=== PATIENT | female | born 1990 | race Caucasian/White ===

== ENCOUNTER 2022-02-16 06:11 | Day surgery (SDC) | payer MEDICAID ==
[2022-02-09 15:07] LABS: BASOPHILS % (AUTO) 0.5 % (0-1); EOSINOPHILS # (AUTO) 0.1 X10'3 (0-0.9); EOSINOPHILS % (AUTO) 2.9 % (0-6); LYMPHOCYTES # (AUTO) 1.8 X10'3 (1.1-4.8); LYMPHOCYTES % (AUTO) 39.7 % (21-51); MEAN CORPUSCULAR HEMOGLOBIN 28.4 PG (27.0-31.0); MEAN CORPUSCULAR VOLUME 83.6 FL (78-98); MEAN PLATELET VOLUME 8.5 FL (7.4-10.4); MONOCYTES # (AUTO) 0.3 X10'3 (0-0.9); MONOCYTES % (AUTO) 7.4 % (2-12); NEUTROPHILS # (AUTO) 2.3 X10'3 (1.8-7.7); NEUTROPHILS % (AUTO) 49.5 % (42-75); PRE OP HEMATOCRIT 36.9 % (35.0-45.0); PRE OP HEMOGLOBIN 12.5 g/dL (12.0-16.0); PRE OP PLATELET COUNT 221 X10'3 (140-440); RED BLOOD COUNT 4.41 X10'6 (4.20-5.60); RED CELL DISTRIBUTION WIDTH 13.1 % (11.5-14.5)
[2022-02-09 15:21] LABS: ALBUMIN 3.9 G/DL (3.4-5.0); ALBUMIN/GLOBULIN RATIO 1.2 (1.1-1.5); ALKALINE PHOSPHATASE 80 IU/L (46-116); BLOOD UREA NITROGEN 16 MG/DL (7-18); BUN/CREATININE RATIO 25.4 (6.6-38.0); CALCIUM 8.8 MG/DL (8.5-10.1); CHLORIDE 105 MMOL/L (99-107); CREATININE 0.63 MG/DL (0.40-0.90); PRE OP ALT 26 U/L (30-65); PRE OP ANION GAP 6 (8-16); PRE OP AST 16 U/L (10-37); PRE OP BILIRUB, TOTAL 0.4 MG/DL (0.0-1.0); PRE OP GLUCOSE 94 MG/DL (70-104); PRE OP POTASSIUM 3.9 MMOL/L (3.4-5.1); PRE OP SODIUM 140 MMOL/L (135-145); TOTAL CARBON DIOXIDE 28.9 MMOL/L (24-32); TOTAL PROTEIN 7.1 G/DL (6.4-8.2); eGFR > 90 ML/MIN
[2022-02-09 15:25] LABS: HCG SERUM QL NEGATIVE
[~2022-02-16] VITALS: Ht 170.2 cm; Wt 72.2 kg
[2022-02-16] VITALS (11 sets, daily range): BP systolic 103–141; BP diastolic 60–86
[~2022-02-16 06:11] MED LIST: LEVE500T PO; ceFAZolin inj. 2,000 MG in dextrose 5%-water 100 ML IV ONE; famotidine 20mg tablet PO ONE; ringers solution, lacted 1,000 ML IV SCH
[2022-02-16] MEDS ORDERED: BUPIVAcaine/PF 2.5mg/ml (0.25%) 10ml vial ONE (06:39)
[2022-02-16] MEDS ORDERED: BUPIVACAINE liposomal/PF 13.3 MG/ML vial IM ONE (06:39)
[2022-02-16] MEDS ORDERED: LIDOcaine 1% 30ml preserv. free vial ONE (07:04)
[2022-02-16] MEDS ORDERED: midazolam 1 mg/ML 2ml injection ONE (08:06)
[2022-02-16] MEDS ORDERED: fentaNYL/PF 50MCG/1 ML 2ML syringe ONE (08:06)
[2022-02-16] MEDS ORDERED: propofol inj 20 ML IV ONE (08:07)
[2022-02-16] MEDS ORDERED: rocuronium 10mg/ml inj IV ONE (08:07)
[2022-02-16] MEDS ORDERED: ringers solution, lacted 1,000 ML IV SCH (08:10)
[2022-02-16] MEDS ORDERED: morphine 2 MG/ML inj. syringe IV PRN (08:10)
[2022-02-16] MEDS ORDERED: ondansetron/PF 4mg/2ml inj IV PRN (08:10)
[2022-02-16] MEDS ORDERED: morphine 4 MG/ML inj SYRINge IV PRN (08:10)
[2022-02-16] MEDS ORDERED: HYDROmorphone/PF 0.2 MG/ML SYRINGE IV PRN ×2 (08:10)
[2022-02-16] MEDS ORDERED: meperidine/PF 25mg/ml syringe IV PRN (08:10)
[2022-02-16] MEDS ORDERED: sevoflurane 250ml liquid IH ONE (08:14)
[2022-02-16] MEDS ORDERED: dexamethasone sod phosphate 4mg/ml inj. ONE (08:28)
[2022-02-16] MEDS ORDERED: ondansetron/PF 4mg/2ml inj ONE (09:46)
[2022-02-16] MEDS ORDERED: neostigmine methylsulfate 1 MG/ML 10ml vial ONE (09:48)
[2022-02-16] MEDS ORDERED: glycopyrrolate 0.2mg/ml inj ONE (09:48)
--- NOTE | 2022-02-16 10:01 | NUR ---
Received from OR via [facility], accompanied by Anesthesiologist and report given by DR. VALENCIA Anesthesiologist. PATIENT WAKING UP, DENIES PAIN, V/S WNL, 20G TO RUE, ABDOMEN LAP SITE X3 BANDAIDS C/D/I WITH ABDOMINAL BINDER. Addendum: 02/16/22 at 1016 by Raghav Gonsalves RN Amended: Links added.
[2022-02-16] MEDS ORDERED: oxyCODONE/APAP 5-325mg tablet PO PRN (10:05)
--- NOTE | 2022-02-16 11:41 | NUR ---
ALL DISCHARGE CRITERIA HAS BEEN MET. VSS, PAIN AT A TOLERABLE LEVEL, VOIDING AND ABLE TO SAFELY AMBULATE AND TRANSFER SELF. IV TAKEN OUT WITHOUT ANY COMPLICATIONS. ALL DISCHARGE INSTRUCTIONS COVERED WITH PATIENT AND ALL QUESTIONS ANSWERED. PATIENT TAKEN OUT VIA WHEELCHAIR TO PERSONAL VEHICLE WHERE FAMILY DROVE PATIENT HOME. Addendum: 02/16/22 at 1200 by Raghav Gonsalves RN Amended: Links added.
== END 2022-02-16 11:41 | disposition home or self-care (01) ==
LOC: PAS 06:11
PROVIDERS: ATTEND Surgery
DX: K43.9 Ventral hernia without obstruction or gangrene (principal); M62.08 Separation of muscle (nontraumatic), other site; Z79.899 Other long term (current) drug therapy; Z98.890 Other specified postprocedural states; Z98.51 Tubal ligation status
CPT/HCPCS: 36415; 49652; 64488; 80053; 82948; 84703; 85025; C1781; C9290; J0690; J1100; J2250; J2405; J2704; J2710; J3010; J3490; J7030; J7060; J7120; S2900; Z7506; Z7508; Z7512; A4215; A4618